=== PATIENT | male | born 1975 | race Caucasian/White ===

== ENCOUNTER 2017-04-19 20:29 | Emergency (ER) | payer OTHER ==
[~2017-04-19] VITALS: Ht 185.4 cm; Wt 150.3 kg
[2017-04-19 23:11] LABS: ADD MIUA? NO; BILIRUBIN NEGATIVE; BLOOD NEGATIVE; COLOR YELLOW ((YELLOW)); GLUCOSE (STRIP) NEGATIVE; KETONES NEGATIVE; LEUKOCYTES NEGATIVE; NITRITE NEGATIVE; PROTEIN (STRIP) NEGATIVE; SPECIFIC GRAVITY 1.019 (1.000-1.030); UCUL ADDED? NO
[2017-04-20] MEDS ORDERED: PERCOCET 5/31 TABLET PO (00:41)
[2017-04-20 00:54] VITALS: BP 130/76
== END 2017-04-20 00:55 | disposition home or self-care (01) ==
LOC: EME 20:29 → RME 20:29
PROVIDERS: Physician Assistant
DX: M54.5 Low back pain (principal); G89.29 Other chronic pain; M79.604 Pain in right leg; M79.605 Pain in left leg; R20.0 Anesthesia of skin; R20.2 Paresthesia of skin; F17.200 Nicotine dependence, unspecified, uncomplicated
CPT/HCPCS: 72110; 81003; 99281; 99284; J3010